=== PATIENT | female | born 1935 | race Caucasian/White ===

== ENCOUNTER 2018-03-05 11:33 | Day surgery (SDC) | payer MEDICARE ==
[~2018-03-05 11:33] MED LIST: Acetaminophen TAB* 325 MG PO PRN; Buffered Lidocaine 0.9% SYRIN* 5 ML/SYR SYRINGE INTRADERM ONE
[2018-03-05] MEDS ORDERED: Midazolam* 1 MG/ML 2 ML VIAL (2 MG) ONE ×2 (13:04→13:47)
[2018-03-05] MEDS ORDERED: fentaNYL* 50 MCG/ML 2 ML VIAL (100 MCG VIAL) ONE (13:50)
[2018-03-05 14:23] VITALS: BP 137/78
[2018-03-05] MEDS ORDERED: Tropicamide 1% OPTH.SOL* BTL ONE (16:31)
[2018-03-05] MEDS ORDERED: Neomycin/Polymy/Dex OPHTH.OIN* 3.5 GM ONE (16:31)
[2018-03-05] MEDS ORDERED: Ketorolac 0.5% OPHTH (NF) 0.5 % 5 ML BTL ONE (16:31)
[2018-03-05] MEDS ORDERED: Cyclopentolate 1% OPTH.SOL* 2 ML BTL ONE (16:31)
[2018-03-05] MEDS ORDERED: Phenylephrine 2.5% OPTH.SOL* 2 ML BTL ONE (16:31)
[2018-03-05] MEDS ORDERED: Lidocaine 1% MPF* 2 ML VIAL ONE (16:31)
[2018-03-05] MEDS ORDERED: Tetracaine 0.5% OPTH.SOL 4 ML* 1 DROP BTL ONE (16:31)
[2018-03-05] MEDS ORDERED: Povidone Iodine 5% OPTH* 30 ML BTL ONE (16:31)
[2018-03-05] MEDS ORDERED: acetaZOLAMIDE TAB* 250 MG ONE (16:31)
--- NOTE | 2018-03-05 22:19 | OP ---
OPERATIVE REPORT: DATE OF OPERATION: 03/05/18 - [facility] DATE OF : 33 SURGEON: Андрей Mei MD ANESTHESIOLOGIST: Danette Mccoy MD ANESTHESIA: Monitored anesthesia care. PRE-OP DIAGNOSIS: Cataract, right eye. POST-OP DIAGNOSIS: Cataract, right eye. OPERATIVE PROCEDURE: Extracapsular cataract extraction of the right eye with intraocular lens implant. IMPLANTS: SN60WF 22.5 diopter lens to the right eye. COMPLICATIONS: None. DESCRIPTION OF PROCEDURE: The patient was given phenylephrine 2.5% and cyclopentolate 1% eye drops to the operative eye in the preoperative area. The patient was brought to the operating room where a time-out was taken to identify the correct patient, site and side of surgery. The patient's right eye was prepped and draped in the usual sterile fashion with 5% Betadine. A second time-out was taken to verify the correct patient, site and side of surgery and correct lens selection. A lid speculum was placed to the right eye. A 1-mm paracentesis blade was used to make a clear corneal incision in the superotemporal position. Preservative-free 1% lidocaine was injected into the anterior chamber. DisCoVisc was then injected in the anterior chamber. A 2.75-mm keratome blade was used to make a triplanar incision at the inferotemporal position. A cystotome initiated a capsulorrhexis, which was completed with Utrata forceps in a continuous and curvilinear manner. Hydrodissection of the lens was performed with BSS on a cannula. The lens could be spun in the capsular bag. The phacoemulsification handpiece was used with a [id number]-[id number] technique to remove the nucleus in its entirety with 36.90 CDE. The I/A handpiece then removed the residual cortical lens material. DisCoVisc was injected to inflate the capsular bag. The planned SN60WF 22.5 diopter lens was injected in the capsular bag. The residual DisCoVisc was removed from the eye with the I/A handpiece. The corneal incisions were hydrated and no leaks occurred at physiologic pressure around 20 mmHg per palpation. The lid speculum was removed and drapes removed. Maxitrol ointment was placed to the surface of the operative eye. An adhesive patch and shield was then placed in the operative eye. The patient was taken to the postoperative area in stable condition. [id number]/[facility] #: [id number] [place]
== END 2018-03-05 14:35 | disposition home or self-care (01) ==
LOC: OREAST 11:33
PROVIDERS: ATTEND Student in an Organized Health Care Education/Training Program
DX: H25.11 Age-related nuclear cataract, right eye (principal); H02.831 Dermatochalasis of right upper eyelid; H02.834 Dermatochalasis of left upper eyelid; H53.022 Refractive amblyopia, left eye; I10 Essential (primary) hypertension
CPT/HCPCS: A9270-GY; J2250; J3010; V2632

== ENCOUNTER 2018-03-12 08:05 | Day surgery (SDC) | payer MEDICARE ==
[2018-03-12] MEDS ORDERED: fentaNYL* 50 MCG/ML 2 ML VIAL (100 MCG VIAL) ONE (08:55)
[2018-03-12] MEDS ORDERED: Midazolam* 1 MG/ML 2 ML VIAL (2 MG) ONE ×2 (08:55→10:11)
[2018-03-12] MEDS ORDERED: Neomycin/Polymy/Dex OPHTH.OIN* 3.5 GM ONE (09:14)
[2018-03-12] MEDS ORDERED: Povidone Iodine 5% OPTH* 30 ML BTL ONE (09:14)
[2018-03-12] MEDS ORDERED: Tropicamide 1% OPTH.SOL* BTL ONE (09:14)
[2018-03-12] MEDS ORDERED: Tetracaine 0.5% OPTH.SOL 4 ML* 1 DROP BTL ONE (09:14)
[2018-03-12] MEDS ORDERED: Phenylephrine 2.5% OPTH.SOL* 2 ML BTL ONE (09:14)
[2018-03-12] MEDS ORDERED: Lidocaine 1% MPF* 2 ML VIAL ONE (09:14)
[2018-03-12] MEDS ORDERED: Ketorolac 0.5% OPHTH (NF) 0.5 % 5 ML BTL ONE (09:14)
[2018-03-12] MEDS ORDERED: acetaZOLAMIDE TAB* 250 MG ONE (09:14)
[2018-03-12] MEDS ORDERED: Cyclopentolate 1% OPTH.SOL* 2 ML BTL ONE (09:14)
[2018-03-12 10:08] VITALS: BP 140/99
--- NOTE | 2018-03-12 12:48 | OP ---
DATE OF OPERATION: 03/12/18 - [facility] DATE OF : 33 SURGEON: Андрей Mei MD ANESTHESIA: Monitored anesthesia care. PRE-OP DIAGNOSIS: Cataract, left eye. POST-OP DIAGNOSIS: Cataract, left eye. OPERATIVE PROCEDURE: Extracapsular cataract extraction of the left eye with intraocular lens implant. IMPLANTS: SN60WF 22.0 diopter lens to the left eye. COMPLICATIONS: None. DESCRIPTION OF PROCEDURE: The patient was given phenylephrine 2.5% and cyclopentolate 1% eye drops to the operative eye in the preoperative area. The patient was brought to the operating room where a time-out was taken to identify the correct patient, site, and side of surgery. The patient's left eye was prepped and draped in usual sterile fashion with 5% Betadine. A second time-out was taken to verify the correct patient, site, and side of the surgery. A lid speculum was placed to the left eye. A 1-mm paracentesis blade was used to make a clear corneal incision in the inferotemporal position. Preservative-free 1% lidocaine was injected in the anterior chamber. DisCoVisc was then injected in the anterior chamber. A 2.75-mm keratome blade was used to make a triplanar incision at the superotemporal position. A cystotome initiated a capsulorrhexis, which was completed with Utrata forceps in continuous and curvilinear manner. Hydrodissection of the lens was performed with BSS on a cannula. The lens could be spun in the capsular bag. The phacoemulsification handpiece was used with a divide- and-conquer technique to remove the nucleus in its entirety with 30.54 CDE. The I/A handpiece then removed the residual cortical lens material. DisCoVisc was injected to inflate the capsular bag. The planned SN60WF 22.0 diopter lens was injected in the capsular bag. The residual DisCoVisc was removed from the eye with the I/A handpiece. The corneal incisions were hydrated and no leaks occurred at physiologic pressure around 20 mmHg per palpation. The lid speculum was removed and drapes removed. Maxitrol ointment was placed to the surface of the operative eye. An adhesive patch and shield was then placed in the operative eye. The patient was taken to the postoperative area in stable condition. [id number]/[facility] #: [id number] [facility]
== END 2018-03-12 10:09 | disposition home or self-care (01) ==
LOC: OREAST 08:05
PROVIDERS: ATTEND Student in an Organized Health Care Education/Training Program
DX: H25.12 Age-related nuclear cataract, left eye (principal); H53.022 Refractive amblyopia, left eye; H02.834 Dermatochalasis of left upper eyelid; H02.831 Dermatochalasis of right upper eyelid; G47.33 Obstructive sleep apnea (adult) (pediatric); I10 Essential (primary) hypertension; E78.5 Hyperlipidemia, unspecified; I73.9 Peripheral vascular disease, unspecified; K21.9 Gastro-esophageal reflux disease without esophagitis; F32.9 Major depressive disorder, single episode, unspecified
CPT/HCPCS: A9270-GY; J2250; J3010; V2632